=== PATIENT | female | born 1985 | race Caucasian/White ===

== ENCOUNTER → 2020-08-01 14:39 | Outpatient (BNVA) | payer SELFPAY | PROVIDERS: Visit Provider Family Medicine | DX: Z86.11 Personal history of tuberculosis (principal); Z71.89 Other specified counseling | CPT/HCPCS: 71046 ==

== ENCOUNTER → 2021-01-10 11:10 | Outpatient (BNVA) | payer OTHER, SELFPAY | PROVIDERS: Visit Provider Nurse Practitioner Family | DX: R05 Cough (principal); J40 Bronchitis, not specified as acute or chronic; Z20.822 Contact with and (suspected) exposure to COVID-19 | CPT/HCPCS: 87635 ==

== ENCOUNTER → 2021-01-17 12:20 | Outpatient (BNVA) | payer SELFPAY | PROVIDERS: Visit Provider Nurse Practitioner Family | DX: J40 Bronchitis, not specified as acute or chronic (principal); R53.1 Weakness; R53.83 Other fatigue; R20.2 Paresthesia of skin; R55 Syncope and collapse; R10.9 Unspecified abdominal pain | CPT/HCPCS: 71046; 80053; 81000; 82607; 85025 ==

== ENCOUNTER 2021-08-12 20:01 | Emergency (ER) | payer SELFPAY ==
[2021-08-12 20:39] VITALS: BP 129/80; PULSE 94; RESP 16; TEMP 37.1; O2SAT 99; BMI 21.0
--- NOTE | 2021-08-12 22:00 | CTR_ITS ---
PROCEDURE INFORMATION: Exam: CT Head Without Contrast Exam date and time: 08/12/2021 10:31 PM Age: 36 years old Clinical indication: Weakness, extremity; Left; Patient HX: C/O lue weakness/numbness; Additional info: Numbness and heaviness in left arm TECHNIQUE: Imaging protocol: Computed tomography of the head without contrast. Radiation optimization: All CT scans at this facility use at least one of these dose optimization techniques: automated exposure control; mA and/or kV adjustment per patient size (includes targeted exams where dose is matched to clinical indication); or iterative reconstruction. COMPARISON: No relevant prior studies available. RADIATION DOSE METRICS: Total DLP (mGy-cm): 726.87 FINDINGS: Brain: There is agenesis of the corpus callosum. There is no intracranial mass, hemorrhage or edema. 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 Paranasal sinuses: Visualized sinuses are unremarkable. No fluid levels. Mastoid air cells: Visualized mastoid air cells are well aerated. Soft tissues: Unremarkable. Bones/joints: Unremarkable. No acute fracture. CT/CT head wo con* [id number] IMPRESSION: 1. Agenesis of the corpus callosum. 2. No acute intracranial finding.
[2021-08-12 22:12] VITALS: BP 122/85; PULSE 90; RESP 12; O2SAT 100
--- NOTE | 2021-08-12 22:34 | W.ED.EXTPRO ---
HPI - Extremity Problem General: Chief complaint: Extremity Injury, Upper Stated complaint: Left arm heavy, Left eye pain Time Seen by Provider: 08/12/21 21:49 History of Present Illness: Patient is a 36-year-old female comes to the ED with left arm numbness and heaviness. Symptoms started several hours ago while she was doing some laundry. She says she was feeling some numbness and tingling in tips of her fourth and fifth digit of left hand. She then had some pain and heaviness in the left arm that radiated up into the shoulder. endorsed having some numbness and tingling in the left periorbital region of her face. She also reports having some chest discomfort as well. She says the chest discomfort felt like a tightness in the left side of her chest. Upon arrival here in the ED most of her symptoms have resolved but she still feels a little bit of pain and numbness in her upper left arm. Associated symptoms: Reports chest pain; Deny fever(s) or rash Review of Systems Const: Denies: fever(s), chills or fatigue Eyes: Denies: change in vision or eye discomfort ENMT: Denies: throat pain, odynophagia, nasal discharge or nasal congestion Card: Reports: chest pain; Denies: palpitations, edema, swelling of feet/ankles, dyspnea on exertion or orthopnea Resp: Denies: dyspnea, productive cough or non-productive cough GI: Denies: abdominal pain, nausea, vomiting, diarrhea, constipation or hematochezia : Denies: flank pain, dysuria or hematuria Musc: Denies: neck pain, back pain or extremity swelling Skin/Breast: Denies: rash or new lesions Neuro: Reports: numbness in extremities (Left arm), weakness in extremities (Left arm) and sensory changes (Distal tip of left hand fourth and fifth digit); Denies: headache(s) PFS ED PFSH: Medical History Asthma Hx of tuberculosis Surgical History Hx of tubal ligation Previous section Family History Other CAD (coronary artery disease) Cancer Social History Smoking and tobacco status: former smoker Second hand smoke exposure: No Alcohol intake: former Lives independently: Yes Household members: children Marital status: Single Number of children: 2 Current occupational status: employed History of recent travel: No Current gender identity: Female Special sandra needs: No Physical Exam Const: COMMON NORMALS: patient oriented x3 HENMT: COMMON NORMALS: normocephalic HEAD & SCALP: normocephalic MOUTH: Normal oral and palatal mucosa present THROAT: posterior oropharynx normal and uvula midline Neck/C-Spine: COMMON NORMALS: supple GENERAL: Yes normal visual inspection Resp: COMMON NORMALS: normal respiratory effort, No retractions, No use of accessory muscles and clear to auscultation bilaterally AUSCULTATION: clear to auscultation bilaterally Cardio: COMMON NORMALS: regular rate, regular rhythm, S1 normal heart sound present, S2 normal heart sound present, No gallops present (Cardio), No clicks present (Cardio), No murmurs present (Cardio) and Peripheral pulses 2+ throughout RATE: regular rate RHYTHM: regular rhythm HEART SOUNDS: S1 normal heart sound present and S2 normal heart sound present PERIPHERAL PULSES: Peripheral pulses 2+ throughout GI: COMMON NORMALS: Normal to inspection, nondistended, normoactive bowel sounds present, Soft to palpation, non-tender and no masses PALPATION: Yes Soft to palpation : COMMON NORMALS: Yes no CVA tenderness BLADDER/KIDNEY EXAM: Yes no CVA tenderness Back/Pelvis: COMMON NORMALS: no CVA tenderness Extremity: NARRATIVE EXTREMITY EXAM: Patient does have a positive Phalen's test on left wrist. Neuro: COMMON NORMALS: patient oriented x3, CN's II-XII intact bilaterally, moves all extremities, no focal motor deficits and no sensory deficits noted SENSORY EXAM: Yes extremities (intact) MOTOR EXAM: 5/5 motor strength present throughout Skin: GENERAL SKIN EXAM: dry skin Course Vital Signs: Vital signs: Vital Signs Temperature 98.8 F 08/12/21 20:39 Pulse Rate 90 08/13/21 00:41 Respiratory Rate 12 08/12/21 22:12 Blood Pressure 106/72 08/13/21 00:41 Pulse Oximetry 99 08/13/21 00:41 MDM - Extremity (Nontraumatic) Medical Decision Making Patient is a 36-year-old female comes to the ED with left arm pain and numbness along with some chest pain. Episode occurred briefly while she was doing laundry. Symptoms resolved before arrival to the ED. Vitals are stable. Patient appears in no acute distress or pain. Neuro exam is normal. She does have positive failings test of left wrist. This could likely be the cause of some of her left arm symptoms. CBC and CMP were unremarkable. EKG showed no acute findings. Troponin negative.Head CT showed no acute intracranial findings but did note incidental finding of agenesis of the corpus callosum. I told patient of the CT findings of agenesis of the corpus callosum. Patient denies having any history of seizures and was never told she had this in the past. Patient diagnosed with noncardiac chest pain and carpal tunnel syndrome of left wrist. Patient is new to the area and would like a referral to a PCP. I placed an order with case management for patient to get set up with primary care physician. Return to ED precautions given. Patient understood agree with plan. Lab Data I reviewed the patient's lab results. : 08/12/21 22:50 08/12/21 22:[address] 08/12/21 22:00 IMPRESSION: 1. Agenesis of the corpus callosum. 2. No acute intracranial finding. Chest X-Ray 08/12/21 22:42 IMPRESSION: No acute findings. Laboratory Results WBC 9.1 10^3/uL (4.0-10.0) 08/12/21 22:50 RBC 4.85 10^6/uL (4.1-5.3) 08/12/21 22:50 Hgb 13.7 g/dL (11.5-15.3) 08/12/21 22:50 Hct 41.4 % (37.0-47.0) 08/12/21 22:50 MCV 85.4 fl (81-99) 08/12/21 22:50 MCH 28.2 pg (28.0-34.0) 08/12/21 22:50 MCHC 33.1 g/dL (30.0-36.0) 08/12/21 22:50 RDW 13.2 % (12.1-15.1) 08/12/21 22:50 Plt Count 242 10^3/cmm (130-400) 08/12/21:50 MPV 10.9 fL (7.4-10.4) H 08/12/21 22:50 Neut % (Auto) 77.7 % 08/12/21 22:50 Lymph % (Auto) 16.0 % 08/12/21 22:50 [place] % (Auto) 5.7 % 08/12/21 22:50 Eos % (Auto) 0.3 % 08/12/21 22:50 Baso % (Auto) 0.1 % 08/12/21 22:50 Neut # (Auto) 7.09 10^3/uL (1.8-7.7) 08/12/21 22:50 Lymph # (Auto) 1.5 10^3/uL (0.8-4.8) 08/12/21 22:50 [place] # (Auto) 0.5 10^3/uL (0.2-0.9) 08/12/21 22:50 Eos # (Auto) 0.0 10^3/uL (0.0-0.8) 08/12/21 22:50 Baso # (Auto) 0.0 10^3/uL (0.0-0.1) 08/12/21 22:50 Nucleated RBC % (auto) 0 % 08/12/21:50 Nucleated RBCs # 0.0 /100WBC 08/12/21 22:50 Sodium 138 mmol/L (136-145) 08/12/21 22:50 Potassium 4.0 mmol/L (3.5-5.1) 08/12/21 22:50 Chloride 103 mmol/L (98-107) 08/12/21 22:50 Carbon Dioxide 22 mmol/L (22-29) 08/12/21 22:50 Anion Gap 17.0 (5-19) 08/12/21 22:50 BUN 11 mg/dL (6-20) 08/12/21 22:50 Creatinine 0.7 mg/dL (0.5-0.9) 08/12/21 22:50 GFR Calculation 93.6 mL/min (90-130) 08/12/21 22:50 Glucose 124 mg/dL (65-115) H 08/12/21 22:50 Calculated Osmolality 287 mOsm/kg (285-295) 08/12/21 22:50 Calcium 9.7 mg/dL (8.5-10.5) 08/12/21 22:50 Total Bilirubin 0.3 mg/dL (0.15-1.2) 08/12/21 22:50 AST 18 U/L (0-32) 08/12/21 22:50 ALT 13 U/L (0-33) 08/12/21 22:50 Alkaline Phosphatase 60 IU/L (35-105) 08/12/21 22:50 Troponin T Baseline 6 ng/L (0-10) 08/12/21 22:50 Total Protein 7.7 g/dL (6.6-8.7) 08/12/21 22:50 Albumin 4.5 g/dL (3.5-5.2) 08/12/21 22:50 Globulin 3.2 g/dL (1.3-4.6) 08/12/21 22:50 HCG, Qual Negative (Negative) 08/12/21 22:50 EKG Data EKG 1: EKG interpretation date: 08/12/21 Interpretation: Normal sinus rhythm, no ST segment ovation depression seen, 78 bpm. Discharge Plan Discharge Patient Disposition: Home Clinical Impression: Non-cardiac chest pain, Carpal tunnel syndrome of left wrist Condition: Stable Prescriptions: No Action doxycycline hyclate 100 mg capsule 100 mg PO BID Qty: 20 0RF albuterol sulfate [ProAir HFA] 90 mcg/actuation HFA aerosol inhaler 2 puff inhalation Q6H PRN (Reason: shortness of breath or wheezing) Qty: 8.5 0RF methylprednisolone [Medrol (Arcenio)] 4 mg tablets,dose pack See Rx Instructions PO PER PKG DIR Qty: 21 0RF Rx Instructions: PO PER PKG DIR Discharge Orders: Discharge ED (Routine); Ordered 08/12/21 Ordered By: Juancarlos Das Discharge Diet: Regular Discharge Activity: Increase activity as tolerated Patient Instructions: Carpal Tunnel Syndrome, Noncardiac Chest Pain (ED) Activity Restrictions/Additional Instructions: Follow-up with medical provider as directed. Case management should be contacting you in the next several days to set you up with an appointment with primary care physician. Take medications as prescribed. Return to the ER or your medical provider if condition worsens. Please read and understand discharge instructions. Thank you for choosing [facility] for your healthcare needs today. Please realize this is an emergency room and that we are providing you with a medical screening exam and this may not be complete and all inclusive of all the testing and or work up that you may need to determine your ailment or severity of your illness. It is very important that you follow up as instructed or that you return to the Emergency Department should you have concerns or if your condition changes or worsens in any way. Coding Level of Care Code ED Sales Administration Manager for Chg Fwd Exam Comprehensive
--- NOTE | 2021-08-12 22:41 | ECG_ITS ---
[facility] Test Date: 2021-08-12 Pat Name: Elly Moody Department: Room: Gender: Female Range Mounter: : 1985 Requested By: Juancarlos Das Order Number: [id number] Brandt MD: Viktor Rm M.D. Measurements Intervals [place] Rate: 78 P: 66 [place]: 183 QRS: 76 QRSD: 87 T: 62 QT: 369 QTc: 420 Interpretive Statements SINUS RHYTHM POSSIBLE RIGHT VENTRICULAR CONDUCTION DELAY [RSR (QR) IN V1/V2] No previous ECG available for comparison Electronically Signed On 08-13-2021 22:50:11 CDT by Viktor Rm M.D. [email or web address]
--- NOTE | 2021-08-12 22:42 | XRR_ITS ---
PROCEDURE INFORMATION: Exam: XR Chest Exam date and time: 08/12/2021 11:00 PM Age: 36 years old Clinical indication: Pain; Right-sided; Additional info: Cp TECHNIQUE: Imaging protocol: XR of the chest. Views: 1 view. COMPARISON: CR XR chest 2V* [id number] 01/17/2021 12:27 PM FINDINGS: Lungs: Unremarkable. No consolidation. Pleural spaces: Unremarkable. No pleural effusion. No pneumothorax. Heart/Mediastinum: Unremarkable. No cardiomegaly. Bones/joints: Unremarkable. XR/XR chest 1V portable [id number] IMPRESSION: No acute findings.
[2021-08-12 23:01] LABS: Basophils % 0.1 %; Eosinophils % 0.3 %; Hematocrit 41.4 % (37.0-47.0); Hemoglobin 13.7 g/dL (11.5-15.3); Lymphocytes # 1.5 10^3/uL (0.8-4.8); Mean Corpuscular HGB Conc 33.1 g/dL (30.0-36.0); Mean Corpuscular Hemoglobin 28.2 pg (28.0-34.0); Mean Corpuscular Volume 85.4 fl (81-99); Mean Platelet Volume 10.9 fL (7.4-10.4); Monocytes # 0.5 10^3/uL (0.2-0.9); Monocytes % 5.7 %; Neutrophils # 7.09 10^3/uL (1.8-7.7); Neutrophils % 77.7 %; Nucleated Red Blood Cells % 0 %; Platelet Count 242 10^3/cmm (130-400); Red Blood Count 4.85 10^6/uL (4.1-5.3); Red Cell Distribution Width 13.2 % (12.1-15.1); White Blood Count 9.1 10^3/uL (4.0-10.0)
[2021-08-12 23:23] LABS: HCG, Serum Qual Negative (Negative)
[2021-08-12 23:34] LABS: Alanine Aminotransferase 13 U/L (0-33); Albumin Level 4.5 g/dL (3.5-5.2); Alkaline Phosphatase 60 IU/L (35-105); Aspartate Amino Transferase 18 U/L (0-32); Blood Urea Nitrogen 11 mg/dL (6-20); Calcium 9.7 mg/dL (8.5-10.5); Carbon Dioxide 22 mmol/L (22-29); Chloride 103 mmol/L (98-107); Globulin 3.2 g/dL (1.3-4.6); Glomerular Filtration Rate 93.6 mL/min (90-130); Glucose 124 mg/dL (65-115); Osmolality Calculated 287 mOsm/kg (285-295); Sodium 138 mmol/L (136-145); Total Bilirubin 0.3 mg/dL (0.15-1.2); Total Protein 7.7 g/dL (6.6-8.7); Troponin(5th) Baseline 6 ng/L (0-10)
[2021-08-13 00:41] VITALS: BP 106/72; PULSE 90; O2SAT 99
--- NOTE | 2021-08-22 13:41 | DCPLANNER ---
Addendum entered by Yokasta Hebert 09/05/21 21:27: Patient had a follow up appointment scheduled with [facility] - patient did not attend appointment. Addendum entered by Yokasta Hebert 08/22/21 15:06: Patient returned casework specialist phone call, stated that she wanted manager of case management to get patient established with a primary care. house manager called [facility], spoke with Paula, gave clinic patients information. A follow up appointment was scheduled for Sunday, August 29, 2021 at 1:45 with Bethany Rinaldi. house manager called patient and gave patient the appointment information. Original Note: house manager had message to speak with patient about getting established with a primary care physician, unable to speak with patient or leave a voicemail at this time.
== END 2021-08-12 23:50 | disposition home or self-care (01) ==
PROVIDERS: Emergency Provider Physician Assistant
DX: R07.89 Other chest pain (principal); G56.02 Carpal tunnel syndrome, left upper limb; Z87.891 Personal history of nicotine dependence
CPT/HCPCS: 70450; 71045; 80053; 84484; 84703; 85025; 93005; 99282

== ENCOUNTER 2021-09-30 17:51 | Emergency (ER) | payer SELFPAY ==
[2021-09-30 18:00] VITALS: BP 123/80; PULSE 103; RESP 16; TEMP 36.9; O2SAT 99; BMI 20.1
--- NOTE | 2021-09-30 18:22 | W.ED.WEAKNES ---
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 She notes that she has gotten hot working outside, and feels generally weak. She says that she feels dehydrated. She drank some water, but it did not seem to help. She denies recent illness including fever, shortness of breath, cough, vomiting or diarrhea. She denies any chest discomfort, language problems, speech problems, or focal weakness or vision change MD Complaint: generalized weakness Onset (ago): hour(s) Duration: constant Location: generalized Migration: none Severity: mild Relieving factors: none Exacerbating factors: other Associated symptoms: Reports nausea; Denies chest pain, confusion, melena, decreased appetite, fever(s), headache(s), short of breath, syncope or vomiting Review of Systems Const: Denies: fever(s) Card: Denies: chest pain or syncope Resp: Denies: dyspnea, productive cough or non-productive cough GI: Reports: nausea; Denies: abdominal pain, vomiting, diarrhea or melena : Denies: flank pain Musc: Denies: back pain Skin/Breast: Reports: rash (Perioral rash) Neuro: Denies: headache(s) or confusion PFSH ED PFSH: Medical History Asthma Hx of tuberculosis Surgical History Hx of tubal ligation Previous section Family History Other CAD (coronary artery disease) Cancer Social History Smoking and tobacco status: former smoker Second hand smoke exposure: No Alcohol intake: former Lives independently: Yes Household members: children Marital status: Single Number of children: 2 Current occupational status: employed History of recent travel: No Current gender identity: Female Special sandra needs: No Physical Exam Const: COMMON NORMALS: no acute distress and alert GENERAL APPEARANCE: cooperative; not ill appearing and not frail appearing HENMT: COMMON NORMALS: normocephalic, atraumatic and Normal external nose present HEAD & SCALP: normocephalic and atraumatic FACE & SINUS: normal facial exam, face symmetric and erythema (Perioral erythema, mild. Present on the right neck as well.); no edema NOSE: Normal external nose present and Normal nares present Eye: COMMON NORMALS: Equal, round and reactive pupils present and EOMs intact bilaterally PUPIL: Yes Equal, round and reactive pupils present Neck/C-Spine: GENERAL: Yes trachea midline Chest: CHEST: Yes Symmetrical chest wall rise Resp: COMMON NORMALS: normal respiratory effort, No use of accessory muscles and clear to auscultation bilaterally AUSCULTATION: clear to auscultation bilaterally Cardio: COMMON NORMALS: regular rate and regular rhythm RATE: regular rate RHYTHM: regular rhythm GI: COMMON NORMALS: Normal to inspection, nondistended, normoactive bowel sounds present, Soft to palpation and non-tender PALPATION: Yes Soft to palpation Extremity: COMMON NORMALS: normal to inspection and no pedal edema Neuro: DAVID COMA SCALE: document GCS findings David coma scale eye opening: Spontaneous [place] coma scale verbal response: Orientated David coma scale motor response: Obey commands David coma scale total score: 15 SENSORIUM/ORIENTATION: Yes alert CRANIAL NERVES: Yes CN normal except as noted COORDINATION/BALANCE: [id number] test normal SPEECH: speech normal GAIT: Yes Normal gait present MOTOR EXAM: Pronator motor function not present COORDINATION: [id number] test normal Psych: COMMON NORMALS: cooperative Skin: NARRATIVE SKIN EXAM: Mild perioral rash, present on the right neck as well. Erythema only. No plaques. Does not appear scaly. Course Vital Signs: Vital signs: Vital Signs Temperature 100.3 F H 09/30/21 18:53 Pulse Rate 73 09/30/21 20:00 Respiratory Rate 18 09/30/21 20:00 Blood Pressure 114/76 09/30/21 20:00 Pulse Oximetry 99 09/30/21 20:00 MDM - Weakness Medical Decision Making 36-year-old female has received 2 L of fluid. Her laboratory is normal save a minimal elevation in her CK level. Her temperature is 100.3. She is receiving Tylenol. The fluid will help with this as well. Suspect mild heat exhaustion. Lab Data : 09/30/21 18:30 09/30/21 18:30 Laboratory Results WBC 7.3 10^3/uL (4.0-10.0) 09/30/21 18: RBC 4.57 10^6/uL (4.1-5.3) 09/30/21 18: Hgb 13.0 g/dL (11.5-15.3) 09/30/21 18: Hct 38.7 % (37.0-47.0) 09/30/21 18: MCV 84.7 fl (81-99) 09/30/21 18: MCH 28.4 pg (28.0-34.0) 09/30/21 18: MCHC 33.6 g/dL (30.0-36.0) 09/30/21 18: RDW 13.2 % (12.1-15.1) 09/30/21 18: Plt Count 213 10^3/cmm (130-400) 09/30/21 18: MPV 11.3 fL (7.4-10.4) H 09/30/21 18: Neut % (Auto) 60.2 % 09/30/21 18: Lymph % (Auto) 28.7 % 09/30/21 18:30 [place] % (Auto) 7.9 % 09/30/21 18: Eos % (Auto) 2.5 % 09/30/21 18: Baso % (Auto) 0.4 % 09/30/21 18: Neut # (Auto) 4.42 10^3/uL (1.8-7.7) 09/30/21 18: Lymph # (Auto) 2.1 10^3/uL (0.8-4.8) 09/30/21 18: [place] # (Auto) 0.6 10^3/uL (0.2-0.9) 09/30/21 18:30 Eos # (Auto) 0.2 10^3/uL (0.0-0.8) 09/30/21 18: Baso # (Auto) 0.0 10^3/uL (0.0-0.1) 09/30/21 18: Nucleated RBC % (auto) 0 % 09/30/21 18: Nucleated RBCs # 0.0 /100WBC 09/30/21 18: Sodium 137 mmol/L (136-145) 09/30/21 18: Potassium 3.6 mmol/L (3.5-5.1) 09/30/21 18: Chloride 102 mmol/L (98-107) 09/30/21 18: Carbon Dioxide 25 mmol/L (22-29) 09/30/21 18: Anion Gap 13.6 (5-19) 09/30/21 18: BUN 18 mg/dL (6-20) 09/30/21 18: Creatinine 0.8 mg/dL (0.5-0.9) 09/30/21 18: GFR Calculation 80.3 mL/min (90-130) L 09/30/21 18: Glucose 93 mg/dL (65-115) 09/30/21 18: Calculated Osmolality 286 mOsm/kg (285-295) 09/30/21 18: Calcium 9.2 mg/dL (8.5-10.5) 09/30/21 18: Total Bilirubin 0.2 mg/dL (0.15-1.2) 09/30/21: AST 20 U/L (0-32) 09/30/21 18: ALT 16 U/L (0-33) 09/30/21 18: Alkaline Phosphatase 49 IU/L (35-105) 09/30/21 18: Creatine Kinase 206 U/L (26-192) H 09/30/21 18: Total Protein 7.1 g/dL (6.6-8.7) 09/30/21 18: Albumin 4.4 g/dL (3.5-5.2) 09/30/21 18: Globulin 2.7 g/dL (1.3-4.6) 09/30/21 18: Urine Color Yellow (Yellow) 09/30/21 18: Urine Appearance Clear (CLEAR) 09/30/21 18: Urine pH 6.5 (5-7) 09/30/21 Ur Specific Section 1.015 (1.005-1.030) 09/30/21 18: Urine Protein Neg (Negative) 09/30/21 18: Urine Glucose (UA) Norm (Normal) 09/30/21 18 Urine Ketones Negative (Negative) 09/30/21 Urine Blood Neg (Negative) 09/30/21 18:30 Urine Nitrate Negative (Negative) 09/30/21 18:30 Urine Bilirubin Neg (Negative) 09/30/21 18:30 Urine Urobilinogen Norm mg/dL (Negative) 09/30/21 18:30 Ur Leukocyte Esterase Negative (Negative) 09/30/21 18:30 Discharge Plan Discharge Patient Disposition: Home Clinical Impression: Heat exhaustion, Acute dehydration Condition: Stable Prescriptions: No Action doxycycline hyclate 100 mg capsule 100 mg PO BID Qty: 20 0RF albuterol sulfate [ProAir HFA] 90 mcg/actuation HFA aerosol inhaler 2 puff inhalation Q6H PRN (Reason: shortness of breath or wheezing) Qty: 8.5 0RF methylprednisolone [Medrol (Arcenio)] 4 mg tablets,dose pack See Rx Instructions PO PER PKG DIR Qty: 21 0RF Rx Instructions: PO PER PKG DIR Discharge Orders: Discharge ED (Routine); Ordered 09/30/21 Ordered By: Alok Patrick Patient Instructions: Dehydration (ED), Heat Exhaustion (ED) Activity Restrictions/Additional Instructions: Return for worsening weakness, inability to control temperature, etc. Stay in a cool environment for at least 24 hours. Drink plenty of water for the next 48 hours. Coding Level of Care Code ED Packing Tractor Machine Operator for Obdulia Fwleon Exam Comprehensive
[2021-09-30] MEDS: sodium chloride 0.9% 1,000 ML 999 ML IV ×2 (18:30→19:21)
[2021-09-30 18:40] LABS: Basophils % 0.4 %; Eosinophils # 0.2 10^3/uL (0.0-0.8); Eosinophils % 2.5 %; Hematocrit 38.7 % (37.0-47.0); Lymphocytes # 2.1 10^3/uL (0.8-4.8); Lymphocytes % 28.7 %; Mean Corpuscular HGB Conc 33.6 g/dL (30.0-36.0); Mean Corpuscular Hemoglobin 28.4 pg (28.0-34.0); Mean Corpuscular Volume 84.7 fl (81-99); Mean Platelet Volume 11.3 fL (7.4-10.4); Monocytes # 0.6 10^3/uL (0.2-0.9); Monocytes % 7.9 %; Neutrophils # 4.42 10^3/uL (1.8-7.7); Neutrophils % 60.2 %; Nucleated Red Blood Cells % 0 %; Platelet Count 213 10^3/cmm (130-400); Red Blood Count 4.57 10^6/uL (4.1-5.3); Red Cell Distribution Width 13.2 % (12.1-15.1); White Blood Count 7.3 10^3/uL (4.0-10.0)
[2021-09-30 18:42] LABS: Add Urine Microscopic? NO; Bilirubin Urine Neg (Negative); Blood Urine Neg (Negative); Charge for UA Resulting for Rev; Glucose Urine UA Norm (Normal); Ketones Urine Negative (Negative); Leukocyte Esterase Urine Negative (Negative); Nitrate Urine Negative (Negative); Protein Urine Neg (Negative); Specific Gravity, Urine 1.015 (1.005-1.030); Urine Appearance Clear (CLEAR); Urine Color Yellow (Yellow); Urobilinogen Urine Norm (Negative); pH Urine 6.5 (5-7)
[2021-09-30 18:53] VITALS: BP 113/69; PULSE 80; RESP 16; TEMP 37.9; O2SAT 99
[2021-09-30 18:59] LABS: Alanine Aminotransferase 16 U/L (0-33); Albumin Level 4.4 g/dL (3.5-5.2); Alkaline Phosphatase 49 IU/L (35-105); Anion Gap 13.6 (5-19); Aspartate Amino Transferase 20 U/L (0-32); Blood Urea Nitrogen 18 mg/dL (6-20); Calcium 9.2 mg/dL (8.5-10.5); Carbon Dioxide 25 mmol/L (22-29); Chloride 102 mmol/L (98-107); Creatine Phosphokinase 206 U/L (26-192); Globulin 2.7 g/dL (1.3-4.6); Glomerular Filtration Rate 80.3 mL/min (90-130); Glucose 93 mg/dL (65-115); Osmolality Calculated 286 mOsm/kg (285-295); Potassium 3.6 mmol/L (3.5-5.1); Sodium 137 mmol/L (136-145); Total Bilirubin 0.2 mg/dL (0.15-1.2); Total Protein 7.1 g/dL (6.6-8.7)
[2021-09-30 19:30] VITALS: BP 110/74; PULSE 79; RESP 18; O2SAT 99
[2021-09-30 20:00] VITALS: BP 114/76; PULSE 73; RESP 18; O2SAT 99
[2021-09-30 20:30] VITALS: BP 109/78; PULSE 79; RESP 18; O2SAT 100
[2021-09-30 21:08] VITALS: BP 103/72; PULSE 93; RESP 18; O2SAT 96
== END 2021-09-30 21:08 | disposition home or self-care (01) ==
PROVIDERS: Emergency Provider Emergency Medicine
DX: T67.5XXA Heat exhaustion, unspecified, initial encounter (principal); X30.XXXA Exposure to excessive natural heat, initial encounter; E86.0 Dehydration
CPT/HCPCS: 80053; 81003; 82550; 85025; 96360; 96361; 99283; J7030